=== PATIENT | male | born 1985 ===

== ENCOUNTER 2016-10-02 20:52 | Emergency (ER) | payer OTHER ==
[2016-10-02 20:57] VITALS: BMI 24.6
[2016-10-02 21:02] VITALS: BP 119/72; O2SAT 98
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
[2016-10-02 23:49] VITALS: PULSE 69; RESP 16; TEMP 98.1
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
== END 2016-10-02 23:50 | disposition home or self-care (01) ==
LOC: ED 20:52
DX: S60.221A Contusion of right hand, initial encounter (principal); V19.9XXA Pedal cyclist (driver) (passenger) injured in unspecified traffic accident, initial encounter; Y93.55 Activity, bike riding; Y92.410 Unspecified street and highway as the place of occurrence of the external cause; M79.651 Pain in right thigh